=== PATIENT | female | born 1950 | race Caucasian/White ===

== ENCOUNTER 2016-09-17 20:30 | Emergency (ER) | payer OTHER, BC ==
[~2016-09-17] VITALS: Ht 165.1 cm; Wt 105.0 kg
[2016-09-17 20:37] VITALS: TEMP 36.3; Ht 165.1 cm; Wt 105.0 kg
--- NOTE | 2016-09-17 21:19 | EMERGENCY ROOM VISIT NOTE ---
History Report prepared by Bud: Lulu Marquez Under the Supervision of: Dr. Kris Ortiz M.D. First contact with patient: 20:45 Chief Complaint: HYPOTENSION Stated Complaint: LOW BP,DIZZY,SWEATING,CHILLS,IN/OUT CONSCIOUSNESS History of Present Illness The patient is a 65 year old female who presents to the Emergency Room with complaints of a near-syncopal episode occurring a few minutes prior to arrival. The patient was eating dinner when she started having nausea, flushing, diaphoresis, and dizziness. She is unsure if she lost consciousness or not. She could hear her family members. The patient currently continues to have nausea. She currently feels at baseline but feels generally weak. She denies any pain. She has a history of vasovagal syncope in March 2016 and reports similar symptoms today. She has a history of hypertension. She denies alcohol use, unusual foods, or changes in medications. The patient denies fevers, chills, chest pain, shortness of breath, vomiting, urinary symptoms, diarrhea, or any other complaints. Source of History: patient Onset: a few minutes prior to arrival Position: other (global) Symptom Intensity: No pain Quality: other (syncopal episode) Associated Symptoms: + diaphoresis, + nausea, + weakness, No fevers, No chills, No chest pain, No SOB, No vomiting, No diarrhea, No urinary symptoms Review of Systems All systems have been listed, reviewed, and are negative other than those previously mentioned. Please see Additional Medical History Sheet. Past Medical & Surgical Medical Problems: (1) Syncope, vasovagal Family History Patient reports no known family medical history. Social History Smoking Status: Current Some Day Smoker Marital Status: single Occupation Status: retired Current/Historical Medications Scheduled Aspirin (Aspirin Ec), 81 MG PO DAILY Cholecalciferol (Vitamin D3), 1 TAB PO DAILY Coenzyme Q10 (Ubidecarenone) (Coq10), 300 MG PO DAILY Cyclosporine (Ophth) (Restasis), 1 DROP OP BID Ezetimibe (Zetia), 10 MG PO DAILY Fish Oil ([place]-3), 1 CAP PO BID Krill Oil (Krill Oil), 1 CAP DAILY Latanoprost (Xalatan 0.005% Oph Lu), 1 DROPS OPB HS Levothyroxine Sodium (Synthroid), 88 MCG PO DAILY Lisinopril (Zestril), 20 MG PO DAILY Multiple Vitamins W/ Minerals (Centrum Cardio), 1 TAB PO DAILY Niacin Ext Rel (Niaspan Ext Rel), 1,000 MG PO DAILY Pantoprazole (Protonix), 40 MG PO DAILY Timolol Maleate (Timolol 0.5% Oph Soln 15 Ml), 1 DROP OPB AMPM Vitamin B Cmplx/Vitc/Folic Ac (Nephrocaps), 1 CAP PO DAILY [Veramist], 1 SPRAY PARVEZ DAILY Allergies Coded Allergies: No Known Allergies (Unverified , 09/17/16) Physical Exam Vital Signs Date Time Temp Pulse Resp B/P (MAP) Pulse Ox O2 Delivery O2 Flow Rate FiO2 09/17/16 22:47 74 18 148/86 99 09/17/16 22:02 69 19 165/88 98 Room Air 09/17/16 21:49 71 19 147/98 96 Room Air 79 158/91 86 177/96 09/17/16 21:31 74 25 166/81 98 Room Air 09/17/16 21:01 Room Air 09/17/16 21:01 70 19 151/106 100 Room Air 09/17/16 20:56 72 09/17/16 20:37 36.3 70 19 136/81 99 Room Air Physical Exam GENERAL: Patient awake, alert, oriented x 3. Patient follows commands. Patient does not appear toxic but appears slightly pale. Patient is adequately hydrated and well-nourished. SKIN: No erythema, pallor, cyanosis or rash HEENT: Normal head, pupils equal, reactive to light and accommodation. Ears normal. Oral cavity and posterior pharynx appear normal. Neck: Without adenopathy, no neck vein distention. LUNGS: Clear to auscultation. No wheezes, no rales, no rhonchi. HEART: No murmurs. No gallops. No rubs ABDOMEN: Obese. No masses, no rebound, no hepatomegaly or splenomegaly. EXTREMITIES: No signs of trauma. No pedal or pretibial edema. No calf or thigh tenderness. NEUROLOGIC: Cranial nerves II-XII within normal limits. No gross motor sensory function deficits. Medical Decision & Procedures ER Provider Diagnostic Interpretation: X ray results are stated below per my interpretation and the radiologist's interpretation. CHEST ONE VIEW PORTABLE CLINICAL HISTORY: near syncope COMPARISON STUDY: No previous studies for comparison. FINDINGS: The heart is borderline enlarged. There is no failure. There is no focal pulmonary consolidation. There are no pleural effusions.[ IMPRESSION: No active disease in the chest. Electronically signed by: Garland Calvillo M.D. 09/17/2016 9:36 PM Dictated Date/Time: 09/17/2016 9:35 PM Laboratory Results 09/17/16 21:15 Red Blood Count 4.61, Mean Corpuscular Volume 91.5, Mean Corpuscular Hemoglobin 31.0, Mean Corpuscular Hemoglobin Concent 33.9, Mean Platelet Volume 11.9, Neutrophils (%) (Auto) 49.4, Lymphocytes (%) (Auto) 42.5, Monocytes (%) (Auto) 5.5, Eosinophils (%) (Auto) 1.8, Basophils (%) (Auto) 0.4, Neutrophils # (Auto) 4.07, Lymphocytes # (Auto) 3.50, Monocytes # (Auto) 0.45, Eosinophils # (Auto) 0.15, Basophils # (Auto) 0.03 09/17/16 21:15 Test 09/17/16 21:15 White Blood Count 8.23 K/uL (4.8-10.8) Red Blood Count 4.61 M/uL (4.2-5.4) Hemoglobin 14.3 g/dL (12.0-16.0) Hematocrit 42.2 % (37-47) Mean Corpuscular Volume 91.5 fL (80-100) Mean Corpuscular Hemoglobin 31.0 pg (25-34) Mean Corpuscular Hemoglobin Concent 33.9 g/dl (32-36) Platelet Count 233 K/uL (130-400) Mean Platelet Volume 11.9 fL (7.4-10.4) Neutrophils (%) (Auto) 49.4 % Lymphocytes (%) (Auto) 42.5 % Monocytes (%) (Auto) 5.5 % Eosinophils (%) (Auto) 1.8 % Basophils (%) (Auto) 0.4 % Neutrophils # (Auto) 4.07 K/uL (1.4-6.5) Lymphocytes # (Auto) 3.50 K/uL (1.2-3.4) Monocytes # (Auto) 0.45 K/uL (0.11-0.59) Eosinophils # (Auto) 0.15 K/uL (0-0.5) Basophils # (Auto) 0.03 K/uL (0-0.2) RDW Standard Deviation 44.9 fL (36.4-46.3) RDW Coefficient of Variation 13.6 % (11.5-14.5) Immature Granulocyte % (Auto) 0.4 % Immature Granulocyte # (Auto) 0.03 K/uL (0.00-0.02) Anion Gap 8.0 mmol/L (3-11) Est Creatinine Clear Calc Drug Dose 67.5 ml/min Estimated GFR () 68.5 Estimated GFR (Non- 59.1 BUN/Creatinine Ratio 23.2 (10-20) Calcium Level 9.5 mg/dl (8.5-10.1) Total Bilirubin 0.3 mg/dl (0.2-1) Aspartate Amino Transf (AST/SGOT) 24 U/L (15-37) Alanine Aminotransferase (ALT/SGPT) 37 U/L (12-78) Alkaline Phosphatase 84 U/L (45-117) Troponin I < 0.015 ng/ml (0-0.045) Total Protein 7.5 gm/dl (6.4-8.2) Albumin 3.5 gm/dl (3.4-5.0) Globulin 4.0 gm/dl (2.5-4.0) Albumin/Globulin Ratio 0.9 (0.9-2) Chemistry Specimen Hemolysis Laboratory results as stated above per my review. ECG Indication: syncope Rate (beats per minute): 69 Rhythm: normal sinus Findings: no acute ischemic change, no ectopy ED Course 2044: Past medical records reviewed. The patient was evaluated in room B11B. A complete history and physical examination was performed. 2224: Upon reevaluation, the patient appeared to have improvement of her symptoms. I discussed today's findings with her. She verbalized agreement of the treatment plan. She was discharged home. Medical Decision Differential diagnosis includes but is not limited to vasovagal syncope, metabolic disorder, arrhythmia. Multiple labs, EKG were obtained. Please see above. The patient is here after a near syncopal episode at home. Patient denies any acute stressors just before this happened. There've been no recent medication changes. The patient has had a vasovagal episode in the past with the same symptoms. The patient is on niacin for cholesterol/triglyceride control. This may have something to do with the flushing and ultimate vasovagal symptoms. We will not change medications at this time but if she has more episodes like this that may be medication that could be discontinued. The patient was asymptomatic prior to discharge. Medication Reconciliation: I attest that I have personally reviewed the patient' s current medication list. The patient's blood pressure in the ED has been elevated. She will follow with her family physician regarding blood pressure control. Impression Primary Impression: Vasovagal near syncope Scribe Attestation The scribe's documentation has been prepared under my direction and personally reviewed by me in its entirety. I confirm that the note above accurately reflects all work, treatment, procedures, and medical decision making performed by me. Departure Information Dispostion Home / Self-Care Referrals No Doctor, Assigned (PCP) Forms HOME CARE DOCUMENTATION FORM, IMPORTANT VISIT INFORMATION, WORK / SCHOOL INSTRUCTIONS Patient Instructions ED Near Syncope Vasovagal, My [facility] Additional Instructions Continue all of your current medications as prescribed. Follow-up with your family physician within the next 10 days.
[2016-09-17 21:24] LABS: BASO % 0.4 %; BASO ABS # 0.03 K/uL (0-0.2); COMPLETE YES; EOS % 1.8 %; HEMATOCRIT 42.2 % (37-47); IG% 0.4 %; LYMPH % 42.5 %; MEAN CELL VOLUME 91.5 fL (80-100); MEAN CORPUSCULAR HGB CONC 33.9 g/dl (32-36); MEAN PLATELET VOLUME 11.9 fL (7.4-10.4); MONO % 5.5 %; NEUT % 49.4 %; PLATELET COUNT 233 K/uL (130-400); RED BLOOD COUNT 4.61 M/uL (4.2-5.4); WHITE BLOOD COUNT 8.23 K/uL (4.8-10.8)
[2016-09-17] MEDS ORDERED: KRIL1000 (21:31)
[2016-09-17] MEDS ORDERED: TMPOPS15 OPB (21:31)
[2016-09-17] MEDS ORDERED: EZET10TA47 PO (21:31)
[2016-09-17] MEDS ORDERED: LISI-725 PO (21:31)
[2016-09-17] MEDS ORDERED: COEN150C4 PO (21:31)
[2016-09-17] MEDS ORDERED: LATA0.5S OPB (21:31)
[2016-09-17] MEDS ORDERED: CHOL20007 PO (21:31)
[2016-09-17] MEDS ORDERED: B-CO1CAP17 PO (21:31)
[2016-09-17] MEDS ORDERED: CYCL0.052 OP (21:31)
[2016-09-17] MEDS ORDERED: PANT40TA PO (21:31)
[2016-09-17] MEDS ORDERED: NSP500 PO (21:31)
[2016-09-17] MEDS ORDERED: VERAMIST NAE (21:31)
[2016-09-17] MEDS ORDERED: OMEG10007 PO (21:31)
[2016-09-17] MEDS ORDERED: LEVO88TA PO (21:31)
[2016-09-17] MEDS ORDERED: MULT-573 PO (21:31)
[2016-09-17] MEDS ORDERED: ASPI81TA28 PO (21:31)
--- NOTE | 2016-09-17 21:37 | DIAGNOSTIC IMAGING REPORT ---
CHEST ONE VIEW PORTABLE CLINICAL HISTORY: near syncope COMPARISON STUDY: No previous studies for comparison. FINDINGS: The heart is borderline enlarged. There is no failure. There is no focal pulmonary consolidation. There are no pleural effusions.[ IMPRESSION: No active disease in the chest. Electronically signed by: Garland Calvillo M.D. 09/17/2016 9:36 PM Dictated Date/Time: 09/17/2016 9:35 PM
[2016-09-17 22:04] LABS: ALB/GLOB RATIO 0.9 (0.9-2); ALKALINE PHOSPHATASE 84 U/L (45-117); ALT/SGPT 37 U/L (12-78); AST/SGOT 24 U/L (15-37); BLOOD UREA NITROGEN 23 mg/dl (7-18); BUN/CREATININE RATIO 23.2 (10-20); CALCIUM 9.5 mg/dl (8.5-10.1); CARBON DIOXIDE 28 mmol/L (21-32); CHLORIDE 107 mmol/L (98-107); GLUCOSE 119 mg/dl (70-99); POTASSIUM 4.6 mmol/L (3.5-5.1); SODIUM 143 mmol/L (136-145)
[2016-09-17 22:47] VITALS: BP 148/86; PULSE 74; O2SAT 99
== END 2016-09-17 22:48 | disposition home or self-care (01) ==
LOC: C.EDB 20:33
DX: R55 Syncope and collapse (principal); I10 Essential (primary) hypertension; F17.210 Nicotine dependence, cigarettes, uncomplicated; Z79.82 Long term (current) use of aspirin; Z79.899 Other long term (current) drug therapy